=== PATIENT | female | born 1975 | race Caucasian/White ===

== ENCOUNTER 2022-06-02 09:58 | Emergency (ER) | payer OTHER ==
[~2022-06-02] VITALS: Ht 157.5 cm; Wt 110.4 kg
[~2022-06-02 09:58] MED LIST: CITA20TA15 PO; DIVA500T1 PO; DOCU100C16 PO; KEP500 PO; LAM25 PO; LORA-476 PO; OXCA300T PO; PROM473S5 PO; RISP1TAB1 PO; ZOLP5TAB1 PO
[2022-06-02 10:13] VITALS: BP 119/73
--- NOTE | 2022-06-02 10:22 | NUR ---
PT W/C ASSISTED TO ER BED 5
--- NOTE | 2022-06-02 10:22 | NUR ---
Maty seth in ED - 06/02/22 at 1117 by [email or web address] PT C/O ASSISTED TO ER BED 5
--- NOTE | 2022-06-02 11:11 | NUR ---
46 YEAR OLD PT C/O THROBBING SHARP 10/10 BILATERAL [facility] -LOC -HEAD INJURY -BLOOD THINNERS. PRESENTS WITH REDDENDED SWELLING BILATERALLY IN FEET AND TENDER TO TOUCH. STATES PAIN AT MOST UPON WALKING OR MOVEMENT. CAP REFILL <3 THROUGHOUT FEET. PT STATED TAKING ASPIRIN WITH MILD RELIEF. PT NON AMBULATORY AT THIS TIME DUE TO PAIN. WHEEL CHAIR ASSISTED TO ROOM.PT AOX4. NO VISIBLE DISTRESS. CAREGIVER AT BEDSIDE PMH-MILD DEVELOPENTALLY DISABLED, EPILEPSY, OBESITY, ANXIETY, PSYCHOSIS, DEPRESSION, INSOMNIA NKA
--- NOTE | 2022-06-02 11:27 | NUR ---
PT'S RIGHT ANKLE WRAPPED WITH 3" JACOB WRAP. CMS WNL BEFORE AND AFTER
--- NOTE | 2022-06-02 11:50 | NUR ---
Patient discharged with v/s stable. Written and verbal after care instructions FOR ANKLE SPRAIN given and explained. Patient verbalized understanding. Wheel Chair Assisted TO LOBBY with by caregiver. All questions addressed prior to discharge. Advised to follow up with PMD.
--- NOTE | 2022-06-02 11:51 | NUR ---
The patient's care was reviewed and supervised by Jordyn Burroughs RN.
== END 2022-06-02 11:50 | disposition home or self-care (01) ==
LOC: MED 09:58
DX: S93.401A Sprain of unspecified ligament of right ankle, initial encounter (principal); J45.909 Unspecified asthma, uncomplicated; G40.909 Epilepsy, unspecified, not intractable, without status epilepticus; F41.9 Anxiety disorder, unspecified; F32.9 Major depressive disorder, single episode, unspecified; Z79.899 Other long term (current) drug therapy; W01.0XXA Fall on same level from slipping, tripping and stumbling without subsequent striking against object, initial encounter; Y93.89 Activity, other specified; Y92.89 Other specified places as the place of occurrence of the external cause; Y99.8 Other external cause status
CPT/HCPCS: 73610; 73630; 99284; Q0092